=== PATIENT | female | born 1990 | race Caucasian/White ===

== ENCOUNTER 2017-05-28 17:14 | Emergency (ER) | payer SELFPAY ==
[~2017-05-28] VITALS: Ht 170.2 cm; Wt 77.2 kg
[~2017-05-28 17:14] MED LIST: CLC100 PO; MULT-506 PO; NORE-24 PO; ZNTT/150 PO
[2017-05-28 17:29] VITALS: TEMP 36.9; Ht 170.2 cm; Wt 77.2 kg
[2017-05-28] MEDS ORDERED: METH1TAB8 PO (17:36)
[2017-05-28 18:22] LABS: MANUAL MICROSCOPIC REQUIRED? NO; REVIEW REQ? NO; URINE APPEARANCE CLEAR (CLEAR); URINE BILIRUBIN NEG (NEG); URINE COLOR DK YELLOW; URINE EPITHELIAL CELL AUTO 0-5 /lpf (0-5); URINE NITRITE NEG (NEG); URINE SPECIFIC GRAVITY 1.012 (1.000-1.030); UROBILINOGEN NEG (NEG)
--- NOTE | 2017-05-28 18:24 | EMERGENCY ROOM VISIT NOTE ---
History Chief Complaint: URINARY SYMPTOMS Stated Complaint: BACK PAIN, PAINFUL URINATION, NAUSEA, HEADACHE History of Present Illness The patient is a 26 year old female who presents to the Emergency Room with complaints of urinary symptoms since Saturday -Pt has had the following urinary symptoms: dysuria, frequency progressively getting worse since Saturday. -Pt was prompted to come to the ED today after developing back pain and nausea today. Pt denies fever of vomiting. -Pt denies hematuria. -Pt has a PMHx of renal cyst and h/o UTI -Pt said reports less UTI's after renal surgery in 2013 -Pt says that she started her period on Saturday. Pt reports regular periods, but with heavy bleeding. -Pt's last Telecom Coordinator visit was over one year ago for a miscarriage. Pt has been lost to follow-up due to losing her insurance. Pt reports cost of workup being -Pt reports being sexually active with one partner over the past year. Pt is not concerned about STI. -Pt denies lesion on the vagina or abnormal discharge. Review of Systems see below Constitutional: No fever, No chills, No sweats Respiratory: No cough, No sputum, No wheezing Cardiovascular: No chest pain, No orthopnea, No palpitations Abdomen: + pain, + nausea, No vomiting Genitourinary - Female: + dysuria, + urinary frequency, + urinary urgency, No hematuria, No vaginal discharge, No vaginal itching Past Medical/Surgical History Medical Problems: (1) Renal cyst (2) UTI (urinary tract infection) Social History Smoking Status: Never Smoker Current/Historical Medications Scheduled Ciprofloxacin (Ciprofloxacin HCl), 500 MG PO BID Multivitamin (Multivitamin), 1 TAB PO DAILY Ranitidine (Zantac), 150 MG PO DAILY Scheduled PRN Docusate Sodium (Docusate Sodium), 100 MG PO BID PRN for Constipation Methylphenidate Hcl (Methylphenidate Hcl), 10 MG PO DAILY PRN for PRN Physical Exam Vital Signs Date Time Temp Pulse Resp B/P (MAP) Pulse Ox O2 Delivery O2 Flow Rate FiO2 05/28/17 19:57 93 20 129/77 98 05/28/17 17:29 36.9 93 20 129/77 98 Room Air Physical Exam see below General Appearance: WD/WN, no apparent distress Head: normocephalic, atraumatic Respiratory/Chest: chest non-tender, lungs clear, normal breath sounds, no respiratory distress, no accessory muscle use Cardiovascular: regular rate, rhythm, no edema, no gallop, no JVD, no murmur Abdomen / GI: normal bowel sounds, soft, no organomegaly, no pulsatile mass , + tenderness (diffussed tenderness with light and deep palpation) Back: normal inspection, + left CVA tenderness Neurologic/Psych: alert, normal mood/affect, oriented x 3 Medical Decision & Procedures Laboratory Results 05/28/17 18:20 Red Blood Count 4.01, Mean Corpuscular Volume 90.0, Mean Corpuscular Hemoglobin 30.7, Mean Corpuscular Hemoglobin Concent 34.1, Mean Platelet Volume 10.8, Neutrophils (%) (Auto) 67.9, Lymphocytes (%) (Auto) 22.0, Monocytes (%) (Auto) 8.7, Eosinophils (%) (Auto) 0.8, Basophils (%) (Auto) 0.3, Neutrophils # (Auto) 7.81, Lymphocytes # (Auto) 2.53, Monocytes # (Auto) 1.00, Eosinophils # (Auto) 0.09, Basophils # (Auto) 0.03 05/28/17 18:20 Test 05/28/17 18:03 05/28/17 18:20 Urine Color DK YELLOW Urine Appearance CLEAR (CLEAR) Urine pH 6.0 (4.5-7.5) Urine Specific [place] 1.012 (1.000-1.030) Urine Protein TRACE (NEG) Urine Glucose (UA) NEG (NEG) Urine Ketones NEG (NEG) Urine Occult Blood 2+ (NEG) Urine Nitrite NEG (NEG) Urine Bilirubin NEG (NEG) Urine Urobilinogen NEG (NEG) Urine Leukocyte Esterase LARGE (NEG) Urine WBC (Auto) >30 /hpf (0-5) Urine RBC (Auto) 0-4 /hpf (0-4) Urine Hyaline Casts (Auto) 1-5 /lpf (0-5) Urine Epithelial Cells (Auto) 0-5 /lpf (0-5) Urine Bacteria (Auto) NEG (NEG) Urine Test NEG (NEG) White Blood Count 11.49 K/uL (4.8-10.8) Red Blood Count 4.01 M/uL (4.2-5.4) Hemoglobin 12.3 g/dL (12.0-16.0) Hematocrit 36.1 % (37-47) Mean Corpuscular Volume 90.0 fL (80-100) Mean Corpuscular Hemoglobin 30.7 pg (25-34) Mean Corpuscular Hemoglobin Concent 34.1 g/dl (32-36) Platelet Count 211 K/uL (130-400) Mean Platelet Volume 10.8 fL (7.4-10.4) Neutrophils (%) (Auto) 67.9 % Lymphocytes (%) (Auto) 22.0 % Monocytes (%) (Auto) 8.7 % Eosinophils (%) (Auto) 0.8 % Basophils (%) (Auto) 0.3 % Neutrophils # (Auto) 7.81 K/uL (1.4-6.5) Lymphocytes # (Auto) 2.53 K/uL (1.2-3.4) Monocytes # (Auto) 1.00 K/uL (0.11-0.59) Eosinophils # (Auto) 0.09 K/uL (0-0.5) Basophils # (Auto) 0.03 K/uL (0-0.2) RDW Standard Deviation 42.7 fL (36.4-46.3) RDW Coefficient of Variation 13.0 % (11.5-14.5) Immature Granulocyte % (Auto) 0.3 % Immature Granulocyte # (Auto) 0.03 K/uL (0.00-0.02) Anion Gap 6.0 mmol/L (3-11) Est Creatinine Clear Calc Drug Dose 96.8 ml/min Estimated GFR () 95.9 Estimated GFR (Non- 82.8 BUN/Creatinine Ratio 5.5 (10-20) Calcium Level 9.3 mg/dl (8.5-10.1) Total Bilirubin 0.6 mg/dl (0.2-1) Direct Bilirubin 0.1 mg/dl (0-0.2) Aspartate Amino Transf (AST/SGOT) 11 U/L (15-37) Alanine Aminotransferase (ALT/SGPT) 14 U/L (12-78) Alkaline Phosphatase 48 U/L (45-117) Total Protein 7.2 gm/dl (6.4-8.2) Albumin 4.3 gm/dl (3.4-5.0) Lipase 71 U/L (73-393) Medications Administered Medications (Trade) Dose Ordered Sig/Aziza Route Start Time Stop Time Status Last Admin Dose Admin Ciprofloxacin (Cipro Tab) 500 mg NOW STAT PO 05/28/17 19:08 05/28/17 19:14 DC 05/28/17 19:44 500 MG Ciprofloxacin (Cipro 500MG Home Pack) 1 homepack UD ONCE PO 05/28/17 19:15 05/28/17 19:16 DC 05/28/17 19:44 1 HOMEPACK ED Course 18:00 History and physical performed 1815 Labs ordered 1845 accessed labs 1900 reaccessed patient 1930 discussed discharge with patient Medical Decision 26 yo comes into the ED today with urinary symptoms Considering the following differential: urinary tract infection, cystitis, pyelonephritis, perinephric abscess, cervicitis Pt has a UA with large amount of LE, >30 WBC, 2+ blood. Patient has left flank pain with mildly elevated WBC. Pt appears to have an ascending urinary tract infection, specifically pyelonephritis. Pt was discharged with Ciprofloxacin 500 mg BID for 7 days. Pt needs to follow up with her PCP in the outpatient setting. The patient is currently uninsured and worried about being able to pay for medical coverage. Pt was instructed to follow-up if she is experiencing worsening pain, urinary symptoms or fever. Impression Primary Impression: Pyelonephritis Departure Information Dispostion Home / Self-Care Condition GOOD Prescriptions Ciprofloxacin (Ciprofloxacin HCl) 500 Mg Tab 500 MG PO BID for 7 Days, #14 TAB 0 Refills Prov: Alexandro Bolton M.D. 05/28/17 Referrals No Doctor, Assigned (PCP) Patient Instructions My [facility] Additional Instructions Ms. Scott, You came today with urinary symptoms and back pain. We did lab work and found you to have a urinary infection. Considering your back pain and your slightly elevated WBC, it is likely that you have an ascending urinary tract infection. We are starting you 500 mg of Ciprofloxacin twice daily for 7 days. Please follow up if you develop more sever symptoms or fever.
[2017-05-28 18:29] LABS: BASO % 0.3 %; BASO ABS # 0.03 K/uL (0-0.2); COMPLETE YES; EOS % 0.8 %; HEMATOCRIT 36.1 % (37-47); IG% 0.3 %; LYMPH ABS # 2.53 K/uL (1.2-3.4); MEAN CORPUSCULAR HEMOGLOBIN 30.7 pg (25-34); MEAN CORPUSCULAR HGB CONC 34.1 g/dl (32-36); MEAN PLATELET VOLUME 10.8 fL (7.4-10.4); MONO % 8.7 %; NEUT % 67.9 %; PLATELET COUNT 211 K/uL (130-400); RED BLOOD COUNT 4.01 M/uL (4.2-5.4); WHITE BLOOD COUNT 11.49 K/uL (4.8-10.8)
[2017-05-28 18:56] LABS: BUN/CREATININE RATIO 5.5 (10-20); CALCIUM 9.3 mg/dl (8.5-10.1); CREATININE 0.96 mg/dl (0.60-1.20); POTASSIUM 3.5 mmol/L (3.5-5.1)
[2017-05-28] MEDS ORDERED: CIPROFLOXACIN 500 MG TAB PO STA (19:08)
[2017-05-28] MEDS ORDERED: CIPROFLOXACIN 500MG HOME PACK PO ONE (19:15)
[2017-05-28] MEDS ORDERED: CPR/500 PO (19:22)
[2017-05-28 19:57] VITALS: BP 129/77; PULSE 93; O2SAT 98
--- NOTE | 2017-05-29 00:56 | EMERGENCY ROOM VISIT NOTE ---
History Report prepared by Zay: Ranjana Caceres Under the Supervision of: Dr. Brodie Suarez M.D. First contact with patient: 17:34 Chief Complaint: URINARY SYMPTOMS Stated Complaint: BACK PAIN, PAINFUL URINATION, NAUSEA, HEADACHE History of Present Illness The patient is a 26 year old female who presents to the Emergency Room with complaints of worsening urinary symptoms starting 4 days ago. She reports burning with urination and frequency. She developed left flank pain and nausea today which prompted her to present to the ED. The pain radiates into the groin at times. She notes a history of renal cyst. Prior to surgery on the renal cyst , she would have frequent UTIs. She is currently on her menstrual period which started 2 days ago. She is sexually active with 1 partner, but has no concerns for STDs. Pt denies LOC, headache, fevers, chills, diaphoresis, visual changes, neck pain, chest pain, breathing difficulties, vomiting, abdominal pain, melena , hematochezia, numbness, weakness, lymphadenopathy, rash, or other complaints. Source of History: patient Onset: 4 days ago Position: other (global) Quality: other (urinary symptoms) Timing: worsening Associated Symptoms: + nausea, + back pain Note: Pt reports groin pain. Review of Systems See HPI for pertinent positives and negatives. A total of ten systems were reviewed and were otherwise negative. Past Medical & Surgical Medical Problems: (1) Renal cyst (2) UTI (urinary tract infection) Family History No pertinent family history stated. Social History Smoking Status: Never Smoker Occupation Status: employed Current/Historical Medications Scheduled Ciprofloxacin (Ciprofloxacin HCl), 500 MG PO BID Multivitamin (Multivitamin), 1 TAB PO DAILY Ranitidine (Zantac), 150 MG PO DAILY Scheduled PRN Docusate Sodium (Docusate Sodium), 100 MG PO BID PRN for Constipation Methylphenidate Hcl (Methylphenidate Hcl), 10 MG PO DAILY PRN for PRN Allergies Coded Allergies: Armodafinil (Unverified Allergy, Unknown, ANXIOUS, 05/28/17) Nortriptyline (Unverified Allergy, Unknown, ANXIOUS, 05/28/17) Physical Exam Vital Signs Date Time Temp Pulse Resp B/P (MAP) Pulse Ox O2 Delivery O2 Flow Rate FiO2 05/28/17 19:57 93 20 129/77 98 05/28/17 17:29 36.9 93 20 129/77 98 Room Air Physical Exam GENERAL: Awake, alert, well-appearing, in no distress HENT: Normocephalic, atraumatic. Oropharynx unremarkable. EYES: Normal conjunctiva. Sclera non-icteric. NECK: Supple. No nuchal rigidity. FROM. No JVD. RESPIRATORY: Clear to auscultation. CARDIAC: Regular rate, normal rhythm. Extremities warm and well perfused. Pulses equal. ABDOMEN: Soft, non-distended. Minimal LUQ tenderness to palpation. No rebound or guarding. No masses. RECTAL: Deferred. MUSCULOSKELETAL: Chest examination reveals no tenderness. The back is symmetrical on inspection without obvious abnormality. There is left CVA tenderness to palpation. No joint edema. LOWER EXTREMITIES: Calves are equal size bilaterally and non-tender. No edema. No discoloration. NEURO: Normal sensorium. No sensory or motor deficits noted. SKIN: No rash or jaundice noted. Medical Decision & Procedures Laboratory Results 05/28/17 18:20 Red Blood Count 4.01, Mean Corpuscular Volume 90.0, Mean Corpuscular Hemoglobin 30.7, Mean Corpuscular Hemoglobin Concent 34.1, Mean Platelet Volume 10.8, Neutrophils (%) (Auto) 67.9, Lymphocytes (%) (Auto) 22.0, Monocytes (%) (Auto) 8.7, Eosinophils (%) (Auto) 0.8, Basophils (%) (Auto) 0.3, Neutrophils # (Auto) 7.81, Lymphocytes # (Auto) 2.53, Monocytes # (Auto) 1.00, Eosinophils # (Auto) 0.09, Basophils # (Auto) 0.03 05/28/17 18:20 Test 05/28/17 18:03 05/28/17 18:20 Urine Color DK YELLOW Urine Appearance CLEAR (CLEAR) Urine pH 6.0 (4.5-7.5) Urine Specific [place] 1.012 (1.000-1.030) Urine Protein TRACE (NEG) Urine Glucose (UA) NEG (NEG) Urine Ketones NEG (NEG) Urine Occult Blood 2+ (NEG) Urine Nitrite NEG (NEG) Urine Bilirubin NEG (NEG) Urine Urobilinogen NEG (NEG) Urine Leukocyte Esterase LARGE (NEG) Urine WBC (Auto) >30 /hpf (0-5) Urine RBC (Auto) 0-4 /hpf (0-4) Urine Hyaline Casts (Auto) 1-5 /lpf (0-5) Urine Epithelial Cells (Auto) 0-5 /lpf (0-5) Urine Bacteria (Auto) NEG (NEG) Urine Test NEG (NEG) White Blood Count 11.49 K/uL (4.8-10.8) Red Blood Count 4.01 M/uL (4.2-5.4) Hemoglobin 12.3 g/dL (12.0-16.0) Hematocrit 36.1 % (37-47) Mean Corpuscular Volume 90.0 fL (80-100) Mean Corpuscular Hemoglobin 30.7 pg (25-34) Mean Corpuscular Hemoglobin Concent 34.1 g/dl (32-36) Platelet Count 211 K/uL (130-400) Mean Platelet Volume 10.8 fL (7.4-10.4) Neutrophils (%) (Auto) 67.9 % Lymphocytes (%) (Auto) 22.0 % Monocytes (%) (Auto) 8.7 % Eosinophils (%) (Auto) 0.8 % Basophils (%) (Auto) 0.3 % Neutrophils # (Auto) 7.81 K/uL (1.4-6.5) Lymphocytes # (Auto) 2.53 K/uL (1.2-3.4) Monocytes # (Auto) 1.00 K/uL (0.11-0.59) Eosinophils # (Auto) 0.09 K/uL (0-0.5) Basophils # (Auto) 0.03 K/uL (0-0.2) RDW Standard Deviation 42.7 fL (36.4-46.3) RDW Coefficient of Variation 13.0 % (11.5-14.5) Immature Granulocyte % (Auto) 0.3 % Immature Granulocyte # (Auto) 0.03 K/uL (0.00-0.02) Anion Gap 6.0 mmol/L (3-11) Est Creatinine Clear Calc Drug Dose 96.8 ml/min Estimated GFR () 95.9 Estimated GFR (Non- 82.8 BUN/Creatinine Ratio 5.5 (10-20) Calcium Level 9.3 mg/dl (8.5-10.1) Total Bilirubin 0.6 mg/dl (0.2-1) Direct Bilirubin 0.1 mg/dl (0-0.2) Aspartate Amino Transf (AST/SGOT) 11 U/L (15-37) Alanine Aminotransferase (ALT/SGPT) 14 U/L (12-78) Alkaline Phosphatase 48 U/L (45-117) Total Protein 7.2 gm/dl (6.4-8.2) Albumin 4.3 gm/dl (3.4-5.0) Lipase 71 U/L (73-393) Laboratory results reviewed by me Medications Administered Medications (Trade) Dose Ordered Sig/Aziza Route Start Time Stop Time Status Last Admin Dose Admin Ciprofloxacin (Cipro Tab) 500 mg NOW STAT PO 05/28/17 19:08 05/28/17 19:14 DC 05/28/17 19:44 500 MG Ciprofloxacin (Cipro 500MG Home Pack) 1 homepack UD ONCE PO 05/28/17 19:15 05/28/17 19:16 DC 05/28/17 19:44 1 HOMEPACK ED Course 1828: The patient was evaluated in room B10. A complete history and physical exam was performed. 1907: Ciprofloxacin 500 mg PO. 1914: Ciprofloxacin 1 homepack PO. 1931: The patient was reassessed by the resident at this time. He discussed results and discharge instructions: she verbalized understanding and agreement. The patient is ready for discharge. Medical Decision Triage Nursing notes reviewed. The patient's presentation and history were concerning for flank pain and urinary symptoms Etiologies such as UTI, renal colic, appendicitis, diverticulitis, mesenteric ischemia, aortic pathology, infections, inflammatory bowel disease, PUD, biliary pathology, as well as others were entertained. The patient was evaluated. She was doing well. She had symptoms consistent with a UTI and had CVA tenderness. Blood work was obtained. She does have mild leukocytosis. Urinalysis is concerning for infection. The patient was concerned about cost as she has had issues with her insurance lately. Imaging was deferred. She'll be treated with oral Cipro. She will have to follow up closely in the office with her primary. If she worsens in any way she will come back.I gave my usual and customary discussion regarding this issue. The patient was seen and examined with Dr. Bolton, resident physician. We discussed the case and treatments ordered, reviewed the results, and determine the disposition. Please refer to the resident's note for additional details. I have been directly involved with the management and disposition as well as independently evaluated the patient as documented in this note. By the evaluation outlined above other emergent etiologies such as those listed in the differential, as well as others, were deemed relatively unlikely. The patient was educated about the findings as listed above. All questions were answered and the patient was pleased with the treatment. Return instructions were outlined and the patient was discharged in stable condition. The patient was referred to her primary clinic for follow-up for a recheck of the current condition. Medication Reconcilliation Current Medication List: was personally reviewed by me Blood Pressure Screening Patient's blood pressure: Elevated blood pressure Blood pressure disposition: Elevated BP felt to be situational Impression Primary Impression: Pyelonephritis Scribe Attestation The scribe's documentation has been prepared under my direction and personally reviewed by me in its entirety. I confirm that the note above accurately reflects all work, treatment, procedures, and medical decision making performed by me. Departure Information Dispostion Home / Self-Care Prescriptions Ciprofloxacin (Ciprofloxacin HCl) 500 Mg Tab 500 MG PO BID for 7 Days, #14 TAB 0 Refills Prov: Alexandro Bolton M.D. 05/28/17 Referrals No Doctor, Assigned (PCP) Forms HOME CARE DOCUMENTATION FORM, IMPORTANT VISIT INFORMATION Patient Instructions My [facility] Additional Instructions URINARY TRACT INFECTION INSTRUCTIONS: Ciprofloxacin(Cipro) 500mg: Take one pill twice daily for 7 days for your urine infection. All antibiotics can cause diarrhea. If this occurs and you feel worse or it does not resolve in 1-2 days follow up with your doctor or return to the Emergency Department as this could be signs of serious underlying problems. If you experience any pain in your tendons or any tendon injury return to the ER for re-evaluation. Any medication can cause an allergic reaction, stop the pills immediately and return to the ER for rash, hives, breathing difficulties, or swelling. Ibuprofen(Motrin, Advil) may be used for fever or pain. Use 600mg every six hours as needed. Take with food. Avoid using more than 2400mg in a 24 hour period. Do not use 2400mg per day for more than three consecutive days without physician direction. Prolonged inappropriate use can lead to stomach upset or ulcers. (AND/OR) Acetaminophen(Tylenol) may be used for fever or pain. Use 1000mg every six hours as needed. Avoid using more than 4000mg in a 24 hour period. Rest and drink plenty of fluids. Continue current medications. Return to the ER immediately for worsening or persistent abdominal pain, vomiting, fevers, back or flank pain, worsening of your condition, or as needed. Follow up with your primary physician within 2-3 days for a recheck of the current condition.
--- NOTE | 2017-05-30 11:57 | Pharmacy Progress Note ---
ED Pharmacist Culture FollowUp Date of Service: May 30, 2017. Patient was sent home with a prescription for ciprofloxacin, which should cover the E. coli growing from the patient's urine culture.
== END 2017-05-28 19:58 | disposition home or self-care (01) ==
LOC: C.EDB 17:16
DX: N12 Tubulo-interstitial nephritis, not specified as acute or chronic (principal); Z87.440 Personal history of urinary (tract) infections

== ENCOUNTER → 2017-08-08 | Outpatient (CLI) | payer OTHER ==
[~2017-08-08] MED LIST changes: +CPR/500 PO; +METH1TAB8 PO; -NORE-24 PO; +RANI150T85 PO; -ZNTT/150 PO
== END | disposition home or self-care (01) ==
LOC: C.PAPS 09:22
PROVIDERS: ATTEND Physician Assistant
DX: Z12.4 Encounter for screening for malignant neoplasm of cervix (principal)

== ENCOUNTER → 2017-08-08 | Outpatient (CLI) | payer OTHER ==
[~2017-08-08] MED LIST changes: -RANI150T85 PO; +ZNTT/150 PO
[2017-08-14 02:56] LABS: CHLAMYDIA TRACH RNA*** NOT DETECTED (NOT DETECTED); GC (NEIS GONORRHOEAE)RNA** NOT DETECTED (NOT DETECTED)
== END | disposition home or self-care (01) ==
LOC: C.LABSPEC 17:22
PROVIDERS: ATTEND Physician Assistant
DX: Z12.4 Encounter for screening for malignant neoplasm of cervix (principal)

== ENCOUNTER → 2017-08-19 | Outpatient (CLI) | payer OTHER ==
[2017-08-19 13:01] LABS: BASO % 0.2 %; BASO ABS # 0.02 K/uL (0-0.2); EOS ABS # 0.25 K/uL (0-0.5); HEMATOCRIT 36.7 % (37-47); HEMOGLOBIN 12.2 g/dL (12.0-16.0); IG# 0.02 K/uL (0.00-0.02); LYMPH % 29.7 %; LYMPH ABS # 2.48 K/uL (1.2-3.4); MEAN CORPUSCULAR HEMOGLOBIN 30.6 pg (25-34); MEAN CORPUSCULAR HGB CONC 33.2 g/dl (32-36); MEAN PLATELET VOLUME 11.1 fL (7.4-10.4); MONO % 7.8 %; MONO ABS # 0.65 K/uL (0.11-0.59); NEUT % 59.1 %; NEUT ABS # 4.92 K/uL (1.4-6.5); PLATELET COUNT 227 K/uL (130-400); RED CELL DISTRIBUTION WIDTH CV 13.2 % (11.5-14.5); RED CELL DISTRIBUTION WIDTH SD 44.2 fL (36.4-46.3); WHITE BLOOD COUNT 8.34 K/uL (4.8-10.8)
[2017-08-19 13:15] LABS: ALBUMIN 4.1 gm/dl (3.4-5.0); ALT/SGPT 16 U/L (12-78); BLOOD UREA NITROGEN 8 mg/dl (7-18); CALCIUM 8.6 mg/dl (8.5-10.1); CARBON DIOXIDE 24 mmol/L (21-32); CHOLESTEROL 108 mg/dl (0-200); CREATININE 0.68 mg/dl (0.60-1.20); GLUCOSE 85 mg/dl (70-99); POTASSIUM 3.9 mmol/L (3.5-5.1); SODIUM 139 mmol/L (136-145)
[2017-08-19 13:20] LABS: ALKALINE PHOSPHATASE 41 U/L (45-117); AST/SGOT 14 U/L (15-37); LDL CHOLESTEROL CALCULATED 59 mg/dl; TOTAL PROTEIN 6.8 gm/dl (6.4-8.2)
== END | disposition home or self-care (01) ==
LOC: C.LABMFLN 08:40
PROVIDERS: ATTEND Family Medicine
DX: G43.909 Migraine, unspecified, not intractable, without status migrainosus (principal); R68.89 Other general symptoms and signs; Z13.220 Encounter for screening for lipoid disorders

== ENCOUNTER 2021-09-22 07:45 | Inpatient (IN) ==
--- NOTE | 2021-09-22 07:52 | History & Physical Report ---
Date of Service September 22, 2021 Assessment & Plan (1) Post-dates : Plan: admit for induction. Plan to start pitocin. arom as needed. epidural on demand. anticipate . Admission and Anticipated Discharge Date Admission Date: September 22, 2021 History of Present Illness Chief Complaint: induction Primary Care Provider: Hemalatha Bowens MD Patient is a 30yowf with iup at 40 3/7 weeks who presents for postdates induction. Had a candelaria placed last night. Notes +fm. no lof. Has had some bloody show and alot of mucous d/c. Patient notes some cramping but no contractions. 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--had 09/05 covid vaccine, [employer]--last dose January 02 booster--Aug, OB Labs: Blood Type A Positive 02/16/21 Antibody Screen NEGATIVE 02/16/21 Hemoglobin 11.3 g/dL (12.0-16.0) L 06/26/21 Hematocrit 33.6 % (37-47) L 06/26/21 Mean Corpuscular Volume 90.8 fL (80-100) 02/16/21 Platelet Count 300 K/uL (130-400) 02/16/21 Rubella IgG Antibody Immune (Immune) 02/16/21 Rapid Plasma Reagin Nonreactive (Nonreactive) 02/16/21 Hepatitis B Surface Antigen Neg (Neg) 02/16/21 HIV (1&2) Ab and P24 Ag, 4th Gener Neg (Neg) 02/16/21 Glucose 1 Hour 50 gm Load 72 mg/dl (70-130) 06/26/21 Maternal Serum Alpha Fetoprotein 33.9 ng/mL 04/03/21 OB Optional Labs: Chlamydia trachomatis RNA NOT DETECTED (NOT DETECTED) 02/16/21 Neisseria gonorrhoeae RNA NOT DETECTED (NOT DETECTED) 02/16/21 Thyroid Stimulating Hormone (TSH) 2.480 uIu/ml (0.300-4.500) 08/19/17 Alpha Fetoprotein Triple Screen SEE NOTE 04/03/21 Labs Reviewed: low risk panorama--akh cf/sma neg--akh neg afp--akh gbs neg--akh Allergies Allergy/AdvReac Type Severity Reaction Status Date / Time armodafinil Allergy Unknown ANXIOUS Verified 09/21/21 09:42 nortriptyline Allergy Unknown ANXIOUS Verified 09/21/21 09:42 Home Medications Medication Instructions Recorded Confirmed Type prenat.vits,marivel,kly-rskb-tlibl 1 tab PO DAILY 02/13/21 09/21/21 History iron 18 mg tablet 18 mg PO DAILY 09/21/21 09/21/21 History Patient History Medical History Acid reflux History of chicken pox Migraine headache Surgical History H/O dilation and curettage February 2016 History of kidney surgery cyst removed from right kidney- 2014 History of oral surgery Family History Grandmother (Maternal) Breast cancer Father Congenital myasthenia gravis Grandmother (Paternal) Stroke Mother Anxiety Denies family history of Ovarian cancer Colorectal cancer Social History Smoking Status: Never smoker Hx Alcohol Use: No Hx Substance Use: No 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: 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 [employer] Dressing Required: No Beliefs That Will Affect Care: None marital status: Single marital status details: Liseth Marte (27) [phone] Current Living Situation: Significant Other Current Living Situation Comment: lives with fob, cats-fob changing litter current occupational status: employed current occupation: [employer] Feels Safe at Home: Yes Physical Exam Constitutional: WD/WN, vitals as above Gastrointestinal (Abdomen): soft, gravid , nt Psychiatric: A+Ox3, euthymic affect Genitourinary: cx--3/80/-2/post/soft toco--shaneka efm--130s wtih mod variability, accels to 160s, no decels Coding Level of Care Code None Diagnoses Post-dates O48.0
[2021-09-22] MEDS ORDERED: OXYTOCIN 30 UNITS/500 ML BAG IV PRN ×2 (08:21→08:31)
[2021-09-22 08:51] LABS: Hematocrit (blood only) 33.1 % (37-47); Hemoglobin 10.9 g/dL (12.0-16.0); Mean Corpuscular Hemoglobin 30.2 pg (25-34); Mean Corpuscular Hgb Conc 32.9 g/dL (32-36); Mean Corpuscular Volume 91.7 fL (80-100); Mean Platelet Volume 9.9 fL (7.4-10.4); Platelet Count 316 K/uL (130-400); RDW Coefficient of Variation 13.4 % (11.5-14.5); RDW Standard Deviation 45.1 fL (36.4-46.3); Red Blood Count 3.61 M/uL (4.2-5.4); White Blood Count 16.72 K/uL (4.8-10.8)
[2021-09-22] MEDS: LACTATED RINGER'S 1,000 ML IV PRN ×4 (09:02→17:48)
--- NOTE | 2021-09-22 09:30 | Medical Student H&P ---
Date of Service September 22, 2021 Assessment & Plan (1) Encounter for induction of labor: Plan: Start pitocin. Epidural if pt wants it. (2) Post-dates : Admission and Anticipated Discharge Date Admission Date: September 22, 2021 History of Present Illness Chief Complaint: Induction of Labor Primary Care Provider: Hemalatha Bowens MD 30 y/o female at 40 4/7 weeks presenting for an induction of labor. Pt has not had any bleeding, leaking of fluid, decreased , or headaches. She is unsure if she has had any contractions. She is not experiencing any headache, nausea, fevers/chills, shortness of breath, chest pain, dizziness, breast tenderness, or pain. She does state that she is experiencing some lower extremity swelling. The patient's course has been uncomplicated. Pt is GBS-, Rubella immune, A+ blood type. Allergies Allergy/AdvReac Type Severity Reaction Status Date / Time armodafinil Allergy Mild ANXIOUS Verified 09/22/21 08:35 nortriptyline Allergy Mild ANXIOUS Verified 09/22/21 08:35 Home Medications Medication Instructions Recorded Confirmed Type prenat.vits,marivel,yuf-aqqa-vanvw 1 tab PO DAILY 02/13/21 09/21/21 History iron 18 mg tablet 18 mg PO DAILY 09/21/21 09/21/21 History Patient History Medical History Acid reflux History of chicken pox Migraine headache Surgical History H/O dilation and curettage February 2016 History of kidney surgery cyst removed from right kidney- 2014 History of oral surgery Family History Grandmother (Maternal) Breast cancer Father Congenital myasthenia gravis Grandmother (Paternal) Stroke Mother Anxiety Denies family history of Ovarian cancer Colorectal cancer Social History Smoking Status: Never smoker Hx Alcohol Use: No Hx Substance Use: No 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: Hungarian Communication Ability: Effective Magazine Keeper Required: No Beliefs That Will Affect Care: None marital status: Single marital status details: Liseth Pickettji (27) [phone] Current Living Situation: Significant Other Current Living Situation Comment: lives with fob, cats-fob changing litter current occupational status: employed 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 Needs 6 month f/u Review of Systems See HPI Physical Exam Constitutional: Lying in bed in no apparent distress Neck: Trachea midline, no thyromegaly, no lymphadenopathy Respiratory: Chest clear to auscultation bilaterally Cardiovascular: Regular rate and rhythm, no murmurs, rubs, or gallops Gastrointestinal (Abdomen): Gravid abdomen soft, nontender Skin: Non pitting edema Psychiatric: Alert and oriented x3 Results & Data ([facility]) Vital Signs (Past 12 Hours) Vital Signs Temp Pulse Resp BP 09/22/21 07:52 36.9 C 100 H 18 120/65
[2021-09-22] MEDS ORDERED: BUTORPHANOL TARTRATE 1 MG/ML VIAL IV ONE (11:50)
[2021-09-22] MEDS ORDERED: SODIUM CHLORIDE 0.9% INJ 10 ML VIAL ONE (12:28)
[2021-09-22] MEDS ORDERED: ePHEDrine sulfate 50 MG/ML AMP ONE (12:28)
[2021-09-22] MEDS ORDERED: fentaNYL citrate 100 MCG/2 ML VIAL ONE (12:28)
[2021-09-22] MEDS ORDERED: BUPIVACAINE 0.25% 30 ML VIAL ONE (12:28)
[2021-09-22] MEDS ORDERED: fentaNYL 2MCG/ML ROPIVACAINE 1.25MG/ML 100 ML BAG EPI ONE (12:28)
[2021-09-22] MEDS ORDERED: NALBUPHINE HCL INJ 10 MG/ML AMP IV PRN ×2 (12:51→19:49)
[2021-09-22] MEDS ORDERED: fentaNYL 2MCG/ML ROPIVACAINE 1.25MG/ML 100 ML BAG EPI PRN (12:51)
[2021-09-22] MEDS ORDERED: NALOXONE HCL 1 MG in SODIUM CHLORIDE 0.9% 1000ML 1,000 ML IV PRN ×2 (12:51→19:49)
[2021-09-22] MEDS ORDERED: ONDANSETRON INJ 2 MG/ML 2 ML VIAL IV PRN ×2 (12:51→19:49)
[2021-09-22] MEDS ORDERED: NALOXONE HCL 0.4 MG/1 ML VIAL/CARP IV PRN ×2 (12:51→19:49)
[2021-09-22] MEDS ORDERED: diphenhydrAMINE 50 MG/ML VIAL IV PRN ×2 (12:51→19:49)
[2021-09-22] MEDS ORDERED: ePHEDrine sulfate 50 MG/ML AMP IV PRN ×2 (12:51→19:49)
--- NOTE | 2021-09-22 12:53 | Anesthesiology Consultation ---
Date of Service September 22, 2021 Assessment & Plan (1) Encounter for pre-operative examination: Chart Review Chart Review: Patient NOT seen in Pre Admission Testing and Acceptable Risk for Labor Epidural Consults Requested none History Height/Weight Height: 5 ft 7 in Weight: 125 kg Allergies Allergy/AdvReac Type Severity Reaction Status Date / Time armodafinil Allergy Mild ANXIOUS Verified 09/22/21 08:35 nortriptyline Allergy Mild ANXIOUS Verified 09/22/21 08:35 Medications Home Medications Medication Instructions Recorded Confirmed Last Taken prenat.vits,marivel,mda-fodl-qlops 1 tab PO DAILY 02/13/21 09/21/21 09/21/21 08:00 iron 18 mg tablet 18 mg PO DAILY 09/21/21 09/21/21 09/21/21 08:00 Active Medications Generic Name Dose Route Start Last Admin Trade Name Freq PRN Reason Stop Dose Admin Oxytocin 30 units in 500 mls @ 8 mls/hr 09/22/21 08:21 09/22/21 11:15 Pitocin IV 09/24/21 08:20 0.48 units/hr .Q24H PRN 8 mls/hr Labor Induction/Augmentation Titration Protocol 0.48 UNITS/HR Lactated Ringer's 1,000 mls @ 125 mls/hr 09/22/21 08:31 09/22/21 12:50 Lr IV 09/24/21 08:30 999 mls/hr .Q8H PRN Administration L&D Protocol Protocol Past Medical History Medical History Acid reflux History of chicken pox Migraine headache Exercise / Class Metabolic Activity II 4-5 Yardwork/Stairs/Walk up hill Past Family History Family History Grandmother (Maternal) Breast cancer Father Congenital myasthenia gravis Grandmother (Paternal) Stroke Mother Anxiety Denies family history of Ovarian cancer Colorectal cancer Past Surgical History Surgical History H/O dilation and curettage February 2016 History of kidney surgery cyst removed from right kidney- 2014 History of oral surgery Social History Smoking Status: Never smoker Hx Alcohol Use: No Hx Substance Use: No substance use type: does not use Physical Exam Vital Signs Last Vital Signs Temp 37.1 C 09/22/21 12:31 Pulse 79 09/22/21 13:11 Resp 18 09/22/21 12:31 BP 122/63 09/22/21 13:11 Pulse Ox 91 09/22/21 13:09 Testing Laboratory Results 09/22/21 08:42
--- NOTE | 2021-09-22 14:20 | Labor Progress Brief Note ---
Date of Service September 22, 2021 Subjective comfortable after epidural Assessment & Plan (1) Encounter for induction of labor: (2) Post-dates : Plan: concern about strip, no membranes to rom. Will continue to watch closely. Hold pit at 8 for now. May need internal. Admission and Anticipated Discharge Date Admission Date: September 22, 2021 Physical Exam Physical Exam: cx--4-5/100/-2, some caput, cannot feel amniotic sac had some trickling earlier, ?rom toco--q2-4min, pit at 8 efm--120s with mod variability, spon accels, +scalp stim. starting to have some decels with and without contractions. Results & Data ([facility]) Vital Signs (Past 12 Hours) Vital Signs Temp Pulse Resp BP Pulse Ox 09/22/21 14:14 91 H 100 09/22/21 14:09 75 116/62 99 09/22/21 14:06 76 102/56 L 09/22/21 14:04 99 H 99 09/22/21 14:03 77 105/59 L 09/22/21 14:00 78 112/59 L 09/22/21 13:59 76 100 09/22/21 13:57 79 109/70 09/22/21 13:54 85 106/58 L 98 09/22/21 13:51 80 108/59 L 09/22/21 13:49 80 98 09/22/21 13:48 80 118/73 09/22/21 13:45 85 122/67 09/22/21 13:44 78 97 09/22/21 13:42 83 127/72 09/22/21 13:39 78 119/68 98 09/22/21 13:36 77 118/69 09/22/21 13:34 78 98 09/22/21 13:33 76 115/67 09/22/21 13:30 80 122/75 09/22/21 13:29 83 96 09/22/21 13:27 86 115/66 09/22/21 13:24 79 115/67 97 09/22/21 13:21 90 118/66 09/22/21 13:19 80 99 09/22/21 13:18 81 119/61 09/22/21 13:15 81 126/63 09/22/21 13:14 90 99 09/22/21 13:11 79 122/63 09/22/21 13:09 93 H 91 09/22/21 13:04 94 H 78 L 09/22/21 13:01 90 86 L 09/22/21 12:59 94 H 100 09/22/21 12:54 81 99 09/22/21 12:49 92 H 98 09/22/21 12:31 37.1 C 79 18 113/71 09/22/21 10:18 78 107/63 09/22/21 07:52 36.9 C 100 H 18 120/65 Coding Level of Care Code None Diagnoses Encounter for induction of labor Z34.90 Post-dates O48.0
--- NOTE | 2021-09-22 14:54 | Labor Progress Brief Note ---
Date of Service September 22, 2021 Subjective comfortable with epidural Assessment & Plan (1) Post-dates : Plan: continue to monitor closely. fetus has recovered. Will attempt to replace iupc. fetus now category one. Admission and Anticipated Discharge Date Admission Date: September 22, 2021 Physical Exam Physical Exam: fse and iupc placed. iupc not working and will replace. Had to turn off pit secondary to decels now 120s wtih mod variability, spon accels to 150s, no decels Results & Data ([facility]) Vital Signs (Past 12 Hours) Vital Signs Temp Pulse Resp BP Pulse Ox 09/22/21 14:49 72 100 09/22/21 14:44 70 100 09/22/21 14:40 71 109/56 L 09/22/21 14:39 74 100 09/22/21 14:34 68 100 09/22/21 14:29 77 100 09/22/21 14:25 78 109/57 L 09/22/21 14:24 78 100 09/22/21 14:19 94 H 100 09/22/21 14:14 91 H 100 09/22/21 14:09 75 116/62 99 09/22/21 14:06 76 102/56 L 09/22/21 14:04 99 H 99 09/22/21 14:03 77 105/59 L 09/22/21 14:00 78 112/59 L 09/22/21 13:59 76 100 09/22/21 13:57 79 109/70 09/22/21 13:54 85 106/58 L 98 09/22/21 13:51 80 108/59 L 09/22/21 13:49 80 98 09/22/21 13:48 80 118/73 09/22/21 13:45 85 122/67 09/22/21 13:44 78 97 09/22/21 13:42 83 127/72 09/22/21 13:39 78 119/68 98 09/22/21 13:36 77 118/69 09/22/21 13:34 78 98 09/22/21 13:33 76 115/67 09/22/21 13:30 80 122/75 09/22/21 13:29 83 96 09/22/21 13:27 86 115/66 09/22/21 13:24 79 115/67 97 09/22/21 13:21 90 118/66 09/22/21 13:19 80 99 09/22/21 13:18 81 119/61 09/22/21 13:15 81 126/63 09/22/21 13:14 90 99 09/22/21 13:11 79 122/63 09/22/21 13:09 93 H 91 09/22/21 13:04 94 H 78 L 09/22/21 13:01 90 86 L 09/22/21 12:59 94 H 100 09/22/21 12:54 81 99 09/22/21 12:49 92 H 98 09/22/21 12:31 37.1 C 79 18 113/71 09/22/21 10:18 78 107/63 09/22/21 07:52 36.9 C 100 H 18 120/65 Coding Level of Care Code None Diagnoses Post-dates O48.0
--- NOTE | 2021-09-22 18:06 | Labor Progress Brief Note ---
Date of Service September 22, 2021 Subjective comfortable Assessment & Plan (1) Post-dates : Plan: pit now off. Fetus not tolerating contractions, remote from delivery. Recommend c/s and she consents. Consent reviewed and signed. With pit off, the fetus has recovered. Admission and Anticipated Discharge Date Admission Date: September 22, 2021 Physical Exam Physical Exam: cx--/-2, caput toco--irregular pattern with coupling, pit at 6 efm--120s with mod variability, accels present, +scalp stim, spontaneous decels to the 60s with return. Results & Data ([facility]) Vital Signs (Past 12 Hours) Vital Signs Temp Pulse Resp BP Pulse Ox Pulse Ox 09/22/21 18:00 85 94 09/22/21 17:59 85 100 09/22/21 17:55 78 114/73 09/22/21 17:54 89 99 09/22/21 17:49 79 100 09/22/21 17:44 74 100 09/22/21 17:39 74 107/58 L 100 09/22/21 17:34 79 100 09/22/21 17:29 76 99 09/22/21 17:26 72 118/64 09/22/21 17:24 68 99 09/22/21 17:19 85 98 09/22/21 17:14 72 98 09/22/21 17:11 71 120/72 09/22/21 17:09 77 100 09/22/21 17:04 73 98 09/22/21 16:59 67 97 09/22/21 16:54 66 116/61 97 09/22/21 16:49 67 97 09/22/21 16:46 68 115/62 09/22/21 16:44 74 97 09/22/21 16:39 74 98 09/22/21 16:34 73 99 09/22/21 16:29 72 99 09/22/21 16:25 37.1 C 76 16 115/67 09/22/21 16:24 78 100 09/22/21 16:19 76 100 09/22/21 16:14 76 99 09/22/21 16:12 75 108/58 L 09/22/21 16:09 86 99 09/22/21 16:04 77 97 09/22/21 15:59 76 96 09/22/21 15:56 77 96/53 L 09/22/21 15:54 72 96 09/22/21 15:49 70 97 09/22/21 15:44 72 99 09/22/21 15:41 69 105/53 L 09/22/21 15:39 81 99 09/22/21 15:34 87 100 09/22/21 15:29 70 100 09/22/21 15:25 71 91/51 L 09/22/21 15:24 75 100 09/22/21 15:19 67 100 09/22/21 15:14 67 100 09/22/21 15:11 67 100/53 L 09/22/21 15:09 72 100 09/22/21 15:04 76 100 09/22/21 14:59 80 100 09/22/21 14:55 80 101/58 L 09/22/21 14:54 71 100 09/22/21 14:49 72 100 09/22/21 14:44 70 100 09/22/21 14:40 71 109/56 L 09/22/21 14:39 74 100 09/22/21 14:34 68 100 09/22/21 14:29 77 100 09/22/21 14:25 78 109/57 L 09/22/21 14:24 78 100 09/22/21 14:19 94 H 100 09/22/21 14:14 91 H 100 09/22/21 14:09 75 116/62 99 09/22/21 14:06 76 102/56 L 09/22/21 14:04 99 H 99 09/22/21 14:03 77 105/59 L 09/22/21 14:00 78 112/59 L 09/22/21 13:59 76 100 09/22/21 13:57 79 109/70 09/22/21 13:54 85 106/58 L 98 09/22/21 13:51 80 108/59 L 09/22/21 13:49 80 98 09/22/21 13:48 80 118/73 09/22/21 13:45 85 122/67 09/22/21 13:44 78 97 09/22/21 13:42 83 127/72 09/22/21 13:39 78 119/68 98 09/22/21 13:36 77 118/69 09/22/21 13:34 78 98 09/22/21 13:33 76 115/67 09/22/21 13:30 80 122/75 09/22/21 13:29 83 96 09/22/21 13:27 86 115/66 09/22/21 13:24 79 115/67 97 09/22/21 13:21 90 118/66 09/22/21 13:19 80 99 09/22/21 13:18 81 119/61 09/22/21 13:15 81 126/63 09/22/21 13:14 90 99 09/22/21 13:11 79 122/63 09/22/21 13:09 93 H 91 09/22/21 13:04 94 H 78 L 09/22/21 13:01 90 86 L 09/22/21 12:59 94 H 100 09/22/21 12:54 81 99 09/22/21 12:51 97 09/22/21 12:49 92 H 98 09/22/21 12:31 37.1 C 79 18 113/71 09/22/21 10:18 78 107/63 09/22/21 07:52 36.9 C 100 H 18 120/65 Coding Level of Care Code None Diagnoses Post-dates O48.0
[2021-09-22] MEDS ORDERED: LACTATED RINGER'S 1,000 ML IV SCH ×2 (18:15→20:00)
[2021-09-22] MEDS ORDERED: OXYTOCIN 10 UNITS/ML 10ML VIAL ONE (18:19)
[2021-09-22] MEDS ORDERED: ONDANSETRON INJ 2 MG/ML 2 ML VIAL ONE (18:19)
[2021-09-22] MEDS ORDERED: PHENYLEPHRINE 100MCG/ML 5ML SYR ONE (18:19)
[2021-09-22] MEDS ORDERED: LIDOCAINE 2%/EPINEPHRINE 1:200,000 20 ML SDV ONE (18:19)
[2021-09-22] MEDS ORDERED: CITRIC ACID/SODIUM CITRATE 15 ML UDC ONE (18:20)
[2021-09-22] MEDS ORDERED: MoRPHine SULFATE PF 1 MG/ML 10 ML AMP/VIAL ONE (18:20)
[2021-09-22] MEDS ORDERED: LACTATED RINGER'S 500 ML IV PRN (19:49)
[2021-09-22] MEDS ORDERED: NALOXONE HCL 0.08 MG in SYRINGE 1.8 ML IV PRN (19:49)
[2021-09-22] MEDS ORDERED: MoRPHine SULFATE 2 MG/ML CARP IV PRN (19:49)
[2021-09-22] MEDS ORDERED: MoRPHine SULFATE PF 1 MG/ML 10 ML AMP/VIAL EPI ONE (19:49)
[2021-09-22] MEDS ORDERED: BENZOCAINE 20% AER SPR 82.5 GM CAN EXT PRN (20:00)
[2021-09-22] MEDS ORDERED: SODIUM CHLORIDE 0.9% 1000ML 1,000 ML IV SCH (20:00)
[2021-09-22] MEDS ORDERED: HYDROCORTISONE ACETATE 25 MG SUPP PR PRN (20:00)
[2021-09-22] MEDS ORDERED: NO NARCOTICS OR SEDATIVES SCH (20:00)
[2021-09-22] MEDS ORDERED: MAGNESIUM HYDROXIDE SUSP 30 ML UDC PO PRN (20:00)
[2021-09-22] MEDS ORDERED: DC INTRASPINAL MORPHINE SCH (20:00)
[2021-09-22] MEDS ORDERED: DIPHTHERIA/TETANUS/PERTUSSIS 0.5 ML SYR/VIAL IM ONE (20:00)
[2021-09-22] MEDS ORDERED: SENNA 8.6 MG TAB PO PRN (20:00)
--- NOTE | 2021-09-22 20:00 | Operative Report ---
PG Post Operative Report Pre & Post Diagnosis Operation Date: 09/22/21 19:30 Pre-Op Diagnosis: at 40 weeks and 3 days. intolerance to labor. Post-Op Diagnosis: at 40 weeks and 3 days. intolerance to labor. I identified the patient and participated in the time-out.: Yes Procedure Operation Date: 09/22/21 19:30 Actual Procedures p Primary low transverse Section in LD, live male child at 1923 in OR 3 - Naa Campbell MD, FACOG Surgeon Naa Campbell MD, FACOG Rn Private Duty Nicole Vences RN Estimated Blood Loss 600 Findings Consistent with Post-Op Diagnosis viable male infant, apgars 9/9, nl utx/tubes/ovs, narrow pelvic outlet Fluids 1500cc Specimens none Drains candelaria Anesthesia Type Labor Epidural Complications none Disposition Accompanied Patient To Recovery: Yes Disposition: L&D Indications [id number] with iup at 40 3/7 . postdates induction. intolerance of labor Description of Procedure The patient was taken to the operating room where she was identified verbally and by bracelet. She was seated on the operating table where her epidural was dosed. She was then placed in the supine position with a leftward tilt. A Candelaria catheter had been placed sterilely. the patient was prepped and draped in a normal standard fashion. the anesthetic was tested and found to be adequate. A time-out was held, identifying correct patient, procedure, positioning and preoperative antibiotics. There were no concerns. A Pfannenstiel skin incision was made with a knife and taken down to the underlying layer of fascia with the knife and Bovie electrocautery. Bleeding was attended to with the Bovie. The fascia was incised in the midline with the knife and taken out laterally with scissors. The superior edge of the fascial incision was grasped, elevated and the underlying layer of rectus muscle was taken off bluntly and with scissors. In a similar fashion, the inferior edge of the fascial incision was grasped, elevated and the underlying layer of rectus muscle was taken off bluntly and with scissors. The muscles were bluntly in the midline. The peritoneum was entered bluntly. The incision was then stretched. The bladder blade was placed. The vesicouterine peritoneum was identified, entered with scissors and taken out laterally with scissors. The bladder flap was created digitally A hysterotomy incision was scored with a knife and the incision was stretched superiorly and inferiorly with the kieselguhr regenerator operator's fingers. The operators hand was placed into the incision and the head was delivered atraumatically. Nuchal cord x 1 easily reduced. The nose and mouth were bulb suctioned. the rest of the infant was then delivered without difficulty. The nose and mouth were again bulb suctioned. The cord was clamped and cut and the was then handed off to the awaiting qlikview developer for drying and attention. Cord blood and segment were obtained. The placenta was Manually extracted. The uterus was exteriorized and cleared of all clot and debris with moistened laparotomy sponges. The hysterotomy incision was repaired in two layers, the first in a running locked layer, the second in an imbricating layer. Hemostasis was noted to be good. Posterior cul-de-sac was irrigated and cleared of all clot and debris. The hysterotomy incision was again inspected and found to be hemostatic. the uterus was reinteriorized. Hysterotomy incision was again inspected and found to be hemostatic. Rectus muscles were reapproximated with several interrupted stitches of 0 Vicryl. The fascia was then reapproximated with 0 Vicryl starting at the edges and meeting in the midline. The subcuticular tissues were copiously irrigated and bleeding was attended to with cautery. The skin was then closed with 4-0 Vicryl in a subcuticular fashion. All sponge, lap and needle counts were correct x 2. The procedure was terminated and the patient taken to labor and delivery in stable condition. I attest to the content of the Intraoperative Record and any orders documented therein. Any exceptions are noted below. OB Procedure Charges 35663
[2021-09-22] MEDS: KETOROLAC 30 MG/ML VIAL IV PRN (20:53)
[2021-09-22] MEDS: OXYTOCIN 20 UNITS in LACTATED RINGER'S 1,000 ML IV SCH (21:03)
--- NOTE | 2021-09-23 00:03 | Anesthesiology Progress Note ---
Date of Service September 23, 2021 Anesthesia Post Procedure Vital Signs Vital Signs: Temp Pulse Resp BP Pulse Ox Pulse Ox 09/22/21 22:35 93 H 104/53 L 09/22/21 22:33 84 95 09/22/21 22:28 90 95 09/22/21 22:23 88 95 09/22/21 22:21 83 107/53 L 09/22/21 22:18 91 H 95 09/22/21 22:15 18 09/22/21 22:13 84 96 09/22/21 22:08 98 H 94 09/22/21 22:03 82 95 09/22/21 21:58 90 95 09/22/21 21:53 90 96 09/22/21 21:51 81 106/55 L 09/22/21 21:48 80 94 09/22/21 21:45 18 09/22/21 21:43 84 96 09/22/21 21:38 84 95 09/22/21 21:33 86 96 09/22/21 21:28 79 95 09/22/21 21:23 82 95 09/22/21 21:19 83 118/58 L 09/22/21 21:18 80 96 09/22/21 21:15 37.0 C 18 09/22/21 21:13 79 94 09/22/21 21:09 88 115/55 L 09/22/21 21:08 85 96 09/22/21 21:05 18 09/22/21 21:03 89 97 09/22/21 20:59 84 103/57 L 09/22/21 20:58 84 95 09/22/21 20:55 18 09/22/21 20:53 90 97 09/22/21 20:49 90 108/51 L 09/22/21 20:48 86 96 09/22/21 20:45 18 09/22/21 20:43 89 99 09/22/21 20:40 86 115/51 L 09/22/21 20:38 91 H 99 09/22/21 20:35 18 09/22/21 20:33 84 99 09/22/21 20:32 77 93 09/22/21 20:30 77 112/56 L 09/22/21 20:28 76 97 09/22/21 20:25 18 09/22/21 20:23 86 96 09/22/21 20:20 88 155/67 H 09/22/21 20:18 92 H 97 09/22/21 20:15 37.1 C 18 09/22/21 20:13 85 96 09/22/21 20:08 45 L 135/74 09/22/21 20:07 87 100 09/22/21 18:59 83 100 09/22/21 18:54 92 H 100 09/22/21 18:49 89 94 09/22/21 18:44 82 100 09/22/21 18:39 83 100 09/22/21 18:34 91 H 100 09/22/21 18:29 87 100 09/22/21 18:25 107/73 09/22/21 18:24 76 100 09/22/21 18:19 71 100 09/22/21 18:14 67 100 09/22/21 18:09 70 119/72 99 09/22/21 18:04 83 100 09/22/21 18:00 85 94 09/22/21 17:59 85 100 09/22/21 17:55 78 114/73 09/22/21 17:54 89 99 09/22/21 17:49 79 100 09/22/21 17:44 74 100 09/22/21 17:39 74 107/58 L 100 09/22/21 17:34 79 100 09/22/21 17:29 76 99 09/22/21 17:26 72 118/64 09/22/21 17:24 68 99 09/22/21 17:19 85 98 09/22/21 17:14 72 98 09/22/21 17:11 71 120/72 09/22/21 17:09 77 100 09/22/21 17:04 73 98 09/22/21 16:59 67 97 09/22/21 16:54 66 116/61 97 09/22/21 16:49 67 97 09/22/21 16:46 68 115/62 09/22/21 16:44 74 97 09/22/21 16:39 74 98 09/22/21 16:34 73 99 09/22/21 16:29 72 99 09/22/21 16:25 37.1 C 76 16 115/67 09/22/21 16:24 78 100 09/22/21 16:19 76 100 09/22/21 16:14 76 99 09/22/21 16:12 75 108/58 L 09/22/21 16:09 86 99 09/22/21 16:04 77 97 09/22/21 15:59 76 96 09/22/21 15:56 77 96/53 L 09/22/21 15:54 72 96 09/22/21 15:49 70 97 09/22/21 15:44 72 99 09/22/21 15:41 69 105/53 L 09/22/21 15:39 81 99 09/22/21 15:34 87 100 09/22/21 15:29 70 100 09/22/21 15:25 71 91/51 L 09/22/21 15:24 75 100 09/22/21 15:19 67 100 09/22/21 15:14 67 100 09/22/21 15:11 67 100/53 L 09/22/21 15:09 72 100 09/22/21 15:04 76 100 09/22/21 14:59 80 100 09/22/21 14:55 80 101/58 L 09/22/21 14:54 71 100 09/22/21 14:49 72 100 09/22/21 14:44 70 100 09/22/21 14:40 71 109/56 L 09/22/21 14:39 74 100 09/22/21 14:34 68 100 09/22/21 14:29 77 100 09/22/21 14:25 78 109/57 L 09/22/21 14:24 78 100 09/22/21 14:19 94 H 100 09/22/21 14:14 91 H 100 09/22/21 14:09 75 116/62 99 09/22/21 14:06 76 102/56 L 09/22/21 14:04 99 H 99 09/22/21 14:03 77 105/59 L 09/22/21 14:00 78 112/59 L 09/22/21 13:59 76 100 09/22/21 13:57 79 109/70 09/22/21 13:54 85 106/58 L 98 09/22/21 13:51 80 108/59 L 09/22/21 13:49 80 98 09/22/21 13:48 80 118/73 09/22/21 13:45 85 122/67 09/22/21 13:44 78 97 09/22/21 13:42 83 127/72 09/22/21 13:39 78 119/68 98 09/22/21 13:36 77 118/69 09/22/21 13:34 78 98 09/22/21 13:33 76 115/67 09/22/21 13:30 80 122/75 09/22/21 13:29 83 96 09/22/21 13:27 86 115/66 09/22/21 13:24 79 115/67 97 09/22/21 13:21 90 118/66 09/22/21 13:19 80 99 09/22/21 13:18 81 119/61 09/22/21 13:15 81 126/63 09/22/21 13:14 90 99 09/22/21 13:11 79 122/63 09/22/21 13:09 93 H 91 09/22/21 13:04 94 H 78 L 09/22/21 13:01 90 86 L 09/22/21 12:59 94 H 100 09/22/21 12:54 81 99 09/22/21 12:51 97 09/22/21 12:49 92 H 98 09/22/21 12:31 37.1 C 79 18 113/71 09/22/21 10:18 78 107/63 09/22/21 07:52 36.9 C 100 H 18 120/65 Pain Intensity Pelvic: Pain Intensity: 2 Transfer of Care Handoff Completed per policy Notes Mental Status: alert / awake / arousable and participated in evaluation Patient Amnestic to Procedure: No Nausea / Vomiting: adequately controlled Pain: adequately controlled Airway Patency, RR, SpO2: stable & adequate BP & HR: stable & adequate Hydration State: stable & adequate Neuraxial Anesthesia: was administered and sensory block is resolving Anesthetic Complications: no major complications apparent and Pt Satisfied with anesthetic care
--- NOTE | 2021-09-23 00:03 | Anesthesia Procedure Note ---
Date of Service September 23, 2021 Anesthesia Post Epidural Note Vital Signs Vital Signs: Temp Pulse Resp BP Pulse Ox 37.0 C 93 H 18 104/53 L 95 09/22/21 21:15 09/22/21 22:35 09/22/21 22:15 09/22/21 22:35 09/22/21 22:33 Pain Intensity Pelvic: Pain Intensity: 2 Notes Mental Status: alert / awake / arousable and participated in evaluation Patient Amnestic to Procedure: No Nausea / Vomiting: adequately controlled Pain: adequately controlled Airway Patency, RR, SpO2: stable & adequate BP & HR: stable & adequate Hydration State: stable & adequate Neuraxial Anesthesia: was administered and sensory block is resolving Anesthetic Complications: no major complications apparent and Pt Satisfied with anesthetic care Epidural: Removed without complications and With tip intact
[2021-09-23] MEDS: KETOROLAC 30 MG/ML VIAL IV PRN (04:34)
[2021-09-23] MEDS: OXYTOCIN 20 UNITS in LACTATED RINGER'S 1,000 ML IV SCH (05:07)
--- NOTE | 2021-09-23 06:07 | Obstetrical Progress Note ---
Date of Service September 23, 2021 Assessment & Plan (1) delivery delivered: Doing well. Not 24 hours out. Candelaria out and void later today. adat. Encourage ambulation. Day #:: 1 Subjective Ambulation: limited ambulation Voiding: candelaria catheter in place Passing Gas:: Yes Diet Tolerance:: clear liquids Lochia:: Small Feeding Type:: breast feeding pain controlled Physical Exam Constitutional WD/WN, vitals as above Cardiovascular Extremities: + edema (+1); no calf tenderness Gastrointestinal (Abdomen) soft, nt, nd ff/appropriately tender at u dressing dry Psychiatric A+Ox3, euthymic affect Results & Data ([facility]) Vital Signs (Past 12 Hours) Vital Signs Temp Pulse Pulse Resp BP BP Pulse Ox 09/23/21 04:30 36.9 C 81 17 102/66 98 09/23/21 03:10 17 96 09/23/21 02:10 16 97 09/23/21 01:10 17 97 09/23/21 00:10 17 95 09/22/21 23:10 37.1 C 82 16 111/67 96 09/22/21 22:35 93 H 104/53 L 09/22/21 22:33 84 95 09/22/21 22:28 90 95 09/22/21 22:23 88 95 09/22/21 22:21 83 107/53 L 09/22/21 22:18 91 H 95 09/22/21 22:15 18 09/22/21 22:13 84 96 09/22/21 22:08 98 H 94 09/22/21 22:03 82 95 09/22/21 21:58 90 95 09/22/21 21:53 90 96 09/22/21 21:51 81 106/55 L 09/22/21 21:48 80 94 09/22/21 21:45 18 09/22/21 21:43 84 96 09/22/21 21:38 84 95 09/22/21 21:33 86 96 09/22/21 21:28 79 95 09/22/21 21:23 82 95 09/22/21 21:19 83 118/58 L 09/22/21 21:18 80 96 09/22/21 21:15 37.0 C 18 09/22/21 21:13 79 94 09/22/21 21:09 88 115/55 L 09/22/21 21:08 85 96 09/22/21 21:05 18 09/22/21 21:03 89 97 09/22/21 20:59 84 103/57 L 09/22/21 20:58 84 95 09/22/21 20:55 18 09/22/21 20:53 90 97 09/22/21 20:49 90 108/51 L 09/22/21 20:48 86 96 09/22/21 20:45 18 09/22/21 20:43 89 99 09/22/21 20:40 86 115/51 L 09/22/21 20:38 91 H 99 09/22/21 20:35 18 09/22/21 20:33 84 99 09/22/21 20:32 77 93 09/22/21 20:30 77 112/56 L 09/22/21 20:28 76 97 09/22/21 20:25 18 09/22/21 20:23 86 96 09/22/21 20:20 88 155/67 H 09/22/21 20:18 92 H 97 09/22/21 20:15 37.1 C 18 09/22/21 20:13 85 96 09/22/21 20:08 45 L 135/74 09/22/21 20:07 87 100 09/22/21 18:59 83 100 09/22/21 18:54 92 H 100 09/22/21 18:49 89 94 09/22/21 18:44 82 100 09/22/21 18:39 83 100 09/22/21 18:34 91 H 100 09/22/21 18:29 87 100 09/22/21 18:25 107/73 09/22/21 18:24 76 100 09/22/21 18:19 71 100 09/22/21 18:14 67 100 09/22/21 18:09 70 119/72 99
[2021-09-23 06:43] LABS: Basophils # (auto) 0.01 K/uL (0-0.2); Basophils % (auto) 0.1 %; Eosinophils # (auto) 0.04 K/uL (0-0.5); Eosinophils % (auto) 0.3 %; Hematocrit (blood only) 26.8 % (37-47); Hemoglobin 8.6 g/dL (12.0-16.0); Immature Granulocytes # (auto) 0.04 K/uL (0.00-0.02); Immature Granulocytes % (auto) 0.3 %; Lymphocytes # (auto) 1.88 K/uL (1.2-3.4); Lymphocytes % (auto) 11.8 %; Mean Corpuscular Hemoglobin 29.7 pg (25-34); Mean Corpuscular Hgb Conc 32.1 g/dL (32-36); Mean Corpuscular Volume 92.4 fL (80-100); Mean Platelet Volume 9.9 fL (7.4-10.4); Monocytes # (auto) 0.93 K/uL (0.11-0.59); Monocytes % (auto) 5.8 %; Neutrophils # (auto) 13.03 K/uL (1.4-6.5); Neutrophils % (auto) 81.7 %; Platelet Count 216 K/uL (130-400); RDW Coefficient of Variation 13.5 % (11.5-14.5); White Blood Count 15.93 K/uL (4.8-10.8)
[2021-09-23] MEDS: PRENATAL VITAMIN 1 TAB PO SCH (09:09)
[2021-09-23] MEDS: SIMETHICONE 80 MG CHEW PO SCH ×4 (09:09→20:14)
[2021-09-23] MEDS: DOCUSATE SODIUM 100 MG CAP PO SCH ×3 (09:09→20:15)
[2021-09-23] MEDS: FERROUS SULFATE 325 MG TAB PO SCH (09:09)
[2021-09-23] MEDS ORDERED: diphenhydrAMINE Capsule 25 MG CAP PO PRN (13:50)
[2021-09-23] MEDS ORDERED: MEPERIDINE HCL 50 MG/ML CARP IV PRN (13:50)
[2021-09-23] MEDS ORDERED: oxyCODONE/ACETAMINOPHEN 5mg/325mg TAB PO PRN (13:50)
[2021-09-23] MEDS ORDERED: KETOROLAC 30 MG/ML VIAL IV PRN (13:50)
[2021-09-23] MEDS ORDERED: diphenhydrAMINE 50 MG/ML VIAL IV PRN (13:50)
[2021-09-23] MEDS ORDERED: PROMETHAZINE HCL 25 MG in SODIUM CHLORIDE 0.9% 50 ML IV PRN (13:50)
[2021-09-23] MEDS ORDERED: ONDANSETRON INJ 2 MG/ML 2 ML VIAL IV PRN (13:50)
[2021-09-23] MEDS: IBUPROFEN 600 MG TAB PO PRN ×2 (14:04→20:15)
[2021-09-23] MEDS: ACETAMINOPHEN 325 MG TAB PO PRN ×2 (14:04→20:14)
[2021-09-23] MEDS ORDERED: bisacodyL 5 MG TABEC PO SCH (20:00)
[2021-09-24] MEDS: IBUPROFEN 600 MG TAB PO PRN ×4 (00:15→19:42)
[2021-09-24] MEDS: ACETAMINOPHEN 325 MG TAB PO PRN ×4 (00:16→19:42)
[2021-09-24] MEDS ORDERED: bisacodyL 5 MG TABEC PO ONE (02:38)
[2021-09-24 07:13] LABS: Hematocrit (blood only) 26.5 % (37-47); Hemoglobin 8.6 g/dL (12.0-16.0)
[2021-09-24] MEDS: FERROUS SULFATE 325 MG TAB PO SCH (08:22)
[2021-09-24] MEDS: SIMETHICONE 80 MG CHEW PO SCH ×3 (08:25→19:42)
[2021-09-24] MEDS: PRENATAL VITAMIN 1 TAB PO SCH (08:25)
[2021-09-24] MEDS: DOCUSATE SODIUM 100 MG CAP PO SCH ×3 (08:25→19:42)
--- NOTE | 2021-09-24 10:11 | Obstetrical Progress Note ---
Date of Service September 24, 2021 Assessment & Plan (1) Post-dates : (2) delivery delivered: doing well, stable. hgb noted. routine care. rh pos, ri, . Day #:: 2 Subjective Ambulation: ambulating normally Voiding: no voiding problems Diet Tolerance:: regular diet Lochia:: Small Feeding Type:: breast feeding good pain control. Constitutional: + as per Subjective / HPI Physical Exam Constitutional WD/WN, vitals as above Respiratory normal respiratory effort, lungs clear to auscultation Cardiovascular Rate/Rhythm: regular rate and regular rhythm Gastrointestinal (Abdomen) Inspection/Auscultation: abdomen normal to inspection and + abdominal surgical incision (c/d/i steris applied) Percussion/Palpation: abdomen soft fundus firm 2 cm below umbilicus Musculoskeletal nt calves no edema Neurologic grossly normal Psychiatric A+Ox3, euthymic affect Results & Data ([facility]) Vital Signs (Past 12 Hours) Vital Signs Temp Pulse Resp BP Pulse Ox 09/24/21 08:15 97.7 F 80 18 108/69 99 09/23/21 23:28 98.2 F 95 H 16 130/80 96
[2021-09-24] MEDS ORDERED: bisacodyL 10 MG SUPP PR PRN (20:00)
[2021-09-25] MEDS: ACETAMINOPHEN 325 MG TAB PO PRN ×3 (01:58→12:42)
[2021-09-25] MEDS: IBUPROFEN 600 MG TAB PO PRN ×3 (01:59→12:42)
--- NOTE | 2021-09-25 08:03 | Obstetrical Progress Note ---
Date of Service September 25, 2021 Assessment & Plan (1) delivery delivered: Plan: 30yo POD 3 s/p LTCS) at 40weeks -Continue routine care -Vitals reviewed- HDS, afebrile -Encourage ambulation, regular diet -Pain control with ibuprofen, acetaminophen PRN -Encourage -Hgb 8.6 (09/24), stable -F/u in 6 weeks with OB Admission and Anticipated Discharge Date Admission Date: September 22, 2021 Supervising Physician Co-Signing Physician Notes Resident Physician Supervision Note: I was present with Dr. Guerra during the history and exam. I discussed the case with the resident and agree with the findings and plan as documented in the note. Any exceptions or clarifications are listed here: stable, routine care. ff 2 down nt, incision c/d/i with steris, f/u 6wks check. instructions reviewed. script sent. checked on pa pdmp. Documented By: Dora Cheng MD, FACOG Subjective Ambulation: yes Voiding: yes Passing Gas: yes BM: yes Diet Tolerance: regular w/o N/V Lochia: small Feeding Type: Current Pain Level(1-10): 1 Review of Systems Review of Systems: Denies fevers/chills. Denies dyspnea, cough. Denies chest pain. Denies breast pain or discharge. Denies dysuria. Denies headache. Denies back pain. Physical Exam Physical Exam: General: Alert, oriented, no acute distress Cardiac: Regular rate and rhythm, normal S1, S2. No murmurs appreciated. Respiratory: Clear to auscultation b/l. No wheezes or crackles. No increased work of breathing or accessory muscle use Abdomen: Soft, nontender, nondistended. Fundus firm and palpable at 1 cm below umbilicus. Surgical incision clean, dry and intact without erythema, warmth or drainage. Steri strips present. Bowel sounds appreciated. No guarding or rebound. Skin: No rashes or lesions Extremities: Warm, dry, well-perfused. +lower extremity edema. No erythema or tenderness to palpation. Negative Guillermo's sign b/l. Results & Data ([facility]) Vital Signs (Past 12 Hours) Vital Signs Temp Pulse Resp BP Pulse Ox 09/25/21 07:24 36.5 C 78 18 124/76 99 09/24/21 22:54 36.9 C 82 18 127/80 Resident Activity Tracking Resident Involvement: Resident Care Provided Care Provided: OB Delivery
[2021-09-25] MEDS: PRENATAL VITAMIN 1 TAB PO SCH (08:19)
[2021-09-25] MEDS: FERROUS SULFATE 325 MG TAB PO SCH (08:19)
[2021-09-25] MEDS: SIMETHICONE 80 MG CHEW PO SCH ×2 (08:19→12:18)
[2021-09-25] MEDS: DOCUSATE SODIUM 100 MG CAP PO SCH (08:20)
--- NOTE | 2021-09-27 00:22 | Discharge Summary (DS) ---
DATE OF ADMISSION: 09/22/2021. DATE OF DISCHARGE: 09/25/2021. ADMISSION DIAGNOSIS: Intrauterine at 40 and 3/7 weeks. DISCHARGE DIAGNOSIS: intolerance of labor. PROCEDURE: Primary low transverse section. HISTORY OF PRESENT ILLNESS: The patient is a 30-year-old, white female, 1, para 0 with an in trauterine at 40 and 3/7 weeks, who presents for post-dates induction. She had a Scanlon bernabe denis the night before admission. She notes good movement, no leakage of fluid. She has had vic e bloody show and a lot of mucus discharge. The patient had some cramping, but no contractions. Thi s has been essentially uncomplicated. For the rest of the patient's admission history and physical, please see her written history and physical. ASSESSMENT: This is a patient who is post-dates, G1, P0, who is admitted for induction. HOSPITAL COURSE: Pitocin induction was started. She underwent an epidural anesthetic and then when she was 4-5 cm dilated, 100% effaced, and -2 station, went to do an amniotomy and could not feel any membranes. She had had some trickling earlier and so was concerned about ROM. At that point i n time, the heart rate was reassuring with 120s, but there were some decels with and without co ntractions. Unfortunately, the fetus was not able to tolerate labor and when starting to increase Pi tocin, the patient had spontaneous decels to the 60s that lasted 2-3 minutes. We tried turning off t he Pitocin and restarting the Pitocin, but this continued and she did not have adequate contractions without Pitocin. Immediately upon turning off the Pitocin, the fetus became category 1 strip. So we proceeded to a section. She underwent a primary low transverse section to deliver a live male child. Estimated blood loss was 600 mL. Apgars were 9 and 9. Normal uterus, tubes, an d ovaries were noted bilaterally and a narrow pelvic outlet was also noted at the time of surgery. The patient's postoperative course was uncomplicated. She tolerated a regular diet, ambulated withou t difficulty, then she voided without difficulty after the removal of her Scanlon catheter, tolerated a regular diet. Her pain was well controlled on oral pain medications. Her discharge hemoglobin was 8.6. She will return in six weeks for a check. Job ID: [id number]
== END 2021-09-25 14:28 | disposition home or self-care (01) | DRG 788 ==
LOC: 4S1 07:45 → 4S2 23:00